=== PATIENT | female | born 1995 | race Caucasian/White ===

== ENCOUNTER 2021-05-14 00:20 | Emergency (ER) | payer OTHER ==
--- NOTE | 2021-05-14 01:54 | EDM.PDOC ---
ED HPI GENERAL MEDICAL PROBLEM - General Chief Complaint: Chest Pain Stated Complaint: CHEST/LEFT ARM PAIN Time Seen by Provider: 05/14/21 01:39 Source of Information: Reports: Patient History Limitations: Reports: No Limitations - History of Present Illness INITIAL COMMENTS - FREE TEXT/NARRATIVE: Flory is a 26-year-old female presenting to the ED with concerns of chest pain that started around 10 AM this morning. The patient initially thought it was gastroesophageal reflux and she took some Tums without improvement. She then thought that maybe she was nauseous because she had not eaten so she ate some food, however, did not improve. She was coming up to their cabin and they stopped in [place] at [facility] where she had some dry rub wings. This too did not help. Tonight she was having worsening pressure in the chest and started to develop left arm pain and some numbness. She states the pain was kind of a fullness feeling. The patient used to be a ICU cardiac nurse in [place] and immediately went to the worst case scenario that she was having heart attack as there is a strong family history on her father's side of cardiac disease. This resulted in her starting to hyperventilate and she developed facial numbness, left upper and lower extremity numbness which continued to exacerbate her anxiety. She was previously on Prilosec for a short time before having a cholecystectomy 2 years ago. She denies any history of gastroesophageal reflux disease other than that time. Denies any recent alcohol use. She has not had any fever or chills. Although she has had nausea she is not had any vomiting. She denies any diarrhea. Chest Pain Score (Numeric/FACES): 1 - Related Data Allergies Allergy/AdvReac Type Severity Reaction Status Date / Time No Known Allergies Allergy Verified 05/14/21 01:09 Home Meds: Home Meds *Birthcontrol 1 tab PO DAILY 05/14/21 [History] NK [No Known Home Meds] 05/14/21 [History] Past Medical History HEENT History: Reports: Impaired Vision Cardiovascular History: Reports: Other (See Below) Other Cardiovascular History: palpatations Gastrointestinal History: Reports: GERD Psychiatric History: Reports: Anxiety - Past Surgical History HEENT Surgical History: Reports: Oral Surgery GI Surgical History: Reports: Cholecystectomy Social & Family History - Tobacco Use Tobacco Use Status *Q: Never Tobacco User - Recreational Drug Use Recreational Drug Use: No ED ROS GENERAL - Review of Systems Review Of Systems: See Below Constitutional: Reports: No Symptoms HEENT: Reports: No Symptoms Respiratory: Reports: Shortness of Breath Cardiovascular: Reports: Chest Pain (Central chest painpressure that started around 10 AM and progressed through the day. Patient initially thought it was reflux but then it became more pressure and started to involve the left arm.) Endocrine: Reports: No Symptoms GI/Abdominal: Reports: Nausea (Nausea waxing and waning since 10 AM this morning, patient thought she was hungry but it did not improve with eating.) : Reports: No Symptoms Musculoskeletal: Reports: No Symptoms Skin: Reports: No Symptoms Neurological: Reports: Numbness (Numbness and tingling in the left arm initially with pressure in the arm. The patient started to breathe heavier and developed facial numbness and left upper and lower extremity numbness.), Tingling Psychiatric: Reports: Anxiety Hematologic/Lymphatic: Reports: No Symptoms Immunologic: Reports: No Symptoms ED EXAM, GENERAL - Physical Exam Exam: See Below Exam Limited By: No Limitations General Appearance: Alert, No Apparent Distress, Anxious Eye Exam: Bilateral Eye: EOMI, PERRL Throat/Mouth: Normal Inspection, Normal Lips, Normal Oropharynx, Normal Voice, No Airway Compromise Head: Atraumatic, Normocephalic Neck: Normal Inspection, Supple, Non-Tender, Full Range of Motion. No: Lymphadenopathy (R), Lymphadenopathy (L) Respiratory/Chest: No Respiratory Distress, Lungs Clear, Normal Breath Sounds Cardiovascular: Normal Peripheral Pulses, Regular Rate, Rhythm, No Murmur Peripheral Pulses: 2+: Radial (L), Radial (R), Posterior Tibial (L), Posterior Tibial (R) GI/Abdominal: Normal Bowel Sounds, Soft, Non-Tender Back Exam: Normal Inspection Extremities: Normal Inspection, Normal Range of Motion, No Pedal Edema Neurological: Alert, Oriented, Normal Cognition, No Motor/Sensory Deficits Psychiatric: Normal Affect, Normal Mood Skin Exam: Warm, Dry, Intact, Normal Color Lymphatic: No Adenopathy #1 Interpretation EKG Date: 05/14/21 Time: 01:02 Rhythm: NSR Rate (Beats/Min): 72 [place]: Normal P-Wave: Present QRS: Normal ST-T: Normal QT: Normal Comparison: NA - No Prior EKG Course - Vital Signs Last Recorded V/S: Last Vital Signs Temp 36.6 C 05/14/21 01:11 Pulse 81 05/14/21 02:38 Resp 15 05/14/21 02:38 BP 124/65 05/14/21 02:38 Pulse Ox 97 05/14/21 02:38 - Orders/Labs/Meds Orders: Active Orders 24 hr Category Date Time Status EKG Documentation Completion [RC] ASDIRECTED Care 05/14/21 01:55 Active EKG 12 Lead [EK] Routine Ther 05/14/21 01:54 Ordered Labs: Laboratory Tests 05/14/21 05/14/21 05/14/21 Range/Units 02:11 02:11 02:11 WBC 7.6 (4.5-11.0) K/uL RBC 4.21 (3.30-5.50) M/uL Hgb 12.5 (12.0-15.0) g/dL Hct 37.3 (36.0-48.0) % MCV 89 (80-98) fL MCH 30 (27-31) pg MCHC 34 (32-36) % Plt Count 310 (150-400) K/uL Neut % (Auto) 56.0 (36-66) % Lymph % (Auto) 30.9 (24-44) % Ellis % (Auto) 8.4 H (2-6) % Eos % (Auto) 4.0 (2-4) % Baso % (Auto) 0.7 (0-1) % Sodium 144 (140-148) mmol/L Potassium 3.9 (3.6-5.2) mmol/L Chloride 108 (100-108) mmol/L Carbon Dioxide 27 (21-32) mmol/L Anion Gap 8.6 (5.0-14.0) mmol/L BUN 12 (7-18) mg/dL Creatinine 1.1 H (0.6-1.0) mg/dL Est Cr Clr Drug Dosing 75.37 mL/min Estimated GFR (MDRD) > 60 (>60) Glucose 99 (74-106) mg/dL Calcium 8.3 L (8.5-10.1) mg/dL Magnesium 2.0 (1.8-2.4) mg/dL Total Bilirubin 0.1 L (0.2-1.0) mg/dL AST 11 L (15-37) U/L ALT 18 (12-78) U/L Alkaline Phosphatase 73 (46-116) U/L Troponin I < 0.017 (0.000-0.056) ng/mL C-Reactive Protein 0.92 H (0.0-0.3) mg/dL Total Protein 6.2 L (6.4-8.2) g/dL Albumin 2.9 L (3.4-5.0) g/dL Globulin 3.3 (2.3-3.5) g/dL Albumin/Globulin Ratio 0.9 L (1.2-2.2) - Re-Assessments/Exams Free Text/Narrative Re-Assessment/Exam: 05/14/21 03:21 the patient's EKG which shows normal sinus rhythm with a rate of 72 bpm. There are no abnormalities seen on it to be worrisome for acute injury or ischemia. Labs were also obtained showing a normal CBC, comprehensive metabolic panel, CRP, and troponin I. I believe the patient likely had some gastroesophageal reflux that caused esophagitis and esophageal spasm. This in turn triggered her anxiety where she started to overthink her symptoms causing her to hyperventilate developing the numbness and tingling in the face and left upper and lower extremity. I reassured her that did not see any abnormalities to be worrisome. At this time she is suitable for discharge home in satisfactory condition. I did recommend starting Prilosec 20 mg twice daily for the next 2 weeks to see if it helps with her reflux esophagitis. It is also possible that she has a mild viral gastritis that triggered this as well with the nausea. Departure - Departure Time of Disposition: 03:07 Disposition: Home, Self-Care 01 Clinical Impression: Gastroesophageal reflux disease with esophagitis without hemorrhage, Acute hyperventilation syndrome Instructions: Food Choices for Gastroesophageal Reflux Disease, Adult, [id number], Gastroesophageal Reflux Disease, Adult, [id number], Hyperventilation Referrals: PCP,None [Primary Care Provider] - Forms: ED Department Discharge Care Plan Goals: Your EKG and labs today were unremarkable for any significant abnormalities. I think this is likely gastroesophageal reflux causing esophageal spasm and leading to hyperventilation which caused the numbness and tingling. I would restart omeprazole 20 mg twice daily for the next 2 weeks to see if this helps improve your symptoms. Sepsis Event Note (ED) - Evaluation Sepsis Screening Result: No Definite Risk - Focused Exam Vital Signs: Vital Signs Temp Pulse Resp BP Pulse Ox 05/14/21 02:38 81 15 124/65 97 05/14/21 01:11 36.6 C 16 155/93 H 98 05/14/21 00:50 36.6 C 16 155/93 H 98 - Problem List & Annotations (1) Acute hyperventilation syndrome SNOMED Code(s): 299862733, 309391589 Code(s): F45.8 - OTHER SOMATOFORM DISORDERS Status: Acute Priority: Medium Current Visit: Yes (2) Gastroesophageal reflux disease with esophagitis without hemorrhage SNOMED Code(s): 720602612 Code(s): K21.00 - GASTRO-ESOPHAGEAL REFLUX DIS WITH ESOPHAGITIS, WITHOUT BLEED Status: Acute Priority: Medium Current Visit: Yes - Problem List Review Problem List Initiated/Reviewed/Updated: Yes - My Orders Last 24 Hours: My Active Orders 05/14/21 01:54 EKG 12 Lead [EK] Routine 05/14/21 01:55 EKG Documentation Completion [RC] ASDIRECTED - Assessment/Plan Last 24 Hours: My Active Orders 05/14/21 01:54 EKG 12 Lead [EK] Routine 05/14/21 01:55 EKG Documentation Completion [RC] ASDIRECTED
== END 2021-05-14 03:33 | disposition home or self-care (01) ==
LOC: JP.ED 00:20
DX: K21.00 Gastro-esophageal reflux disease with esophagitis, without bleeding (principal); F45.8 Other somatoform disorders
CPT/HCPCS: 36415; 80053; 83735; 84484; 85025; 86140; 93005; 99285-25